=== PATIENT | male | born 1965 | race Caucasian/White ===

== ENCOUNTER 2021-02-14 08:42 | Outpatient (CLI) | payer OTHER, SELFPAY | END 2021-02-14 08:43 | disposition home or self-care (01) | LOC: ANHCOVIDVC 08:42 | PROVIDERS: PCP Family Medicine | DX: Z23 Encounter for immunization (principal) | CPT/HCPCS: 0001A; 91300 ==

== ENCOUNTER → 2021-03-06 14:28 | Outpatient (REF) | payer OTHER, SELFPAY | LOC: ANHLAB 14:28 | PROVIDERS: PCP Family Medicine; Visit Provider Nurse Practitioner | DX: C44.609 Unspecified malignant neoplasm of skin of left upper limb, including shoulder (principal) | CPT/HCPCS: 88305 ==

== ENCOUNTER 2021-03-07 08:38 | Outpatient (CLI) | payer OTHER, SELFPAY | END 2021-03-07 08:39 | LOC: ANHCOVIDVC 08:38 | PROVIDERS: PCP Family Medicine | DX: Z23 Encounter for immunization (principal) | CPT/HCPCS: 0002A; 91300 ==

== ENCOUNTER → 2021-03-14 13:00 | Outpatient (REF) | payer OTHER, SELFPAY | LOC: ANHLAB 13:00 | PROVIDERS: PCP Family Medicine; Visit Provider Nurse Practitioner | DX: C44.619 Basal cell carcinoma of skin of left upper limb, including shoulder (principal) | CPT/HCPCS: 88305 ==

== ENCOUNTER → 2021-04-24 07:48 | Outpatient (REF) | payer OTHER, SELFPAY | LOC: ANHLAB 07:48 | PROVIDERS: PCP Family Medicine; Visit Provider Nurse Practitioner | DX: C44.619 Basal cell carcinoma of skin of left upper limb, including shoulder (principal) | CPT/HCPCS: 88305; 88331 ==

== ENCOUNTER → 2022-02-13 01:38 | Outpatient (CLI) | payer OTHER, SELFPAY ==
[2022-02-13 11:24] LABS: SARS-CoV-2 RNA PCR Negative
== END ==
PROVIDERS: PCP Family Medicine; Visit Provider Nurse Practitioner Family
DX: R09.89 Other specified symptoms and signs involving the circulatory and respiratory systems (principal); Z20.822 Contact with and (suspected) exposure to COVID-19
CPT/HCPCS: C9803; U0003; U0005

== ENCOUNTER 2022-12-26 10:36 | Emergency (ER) | payer OTHER, SELFPAY ==
[2022-12-26 10:47] VITALS: BP 119/70; PULSE 104; RESP 20; TEMP 37.1; O2SAT 100
--- NOTE | 2022-12-26 10:54 | ED.BACK ---
HPI - Back Pain/Injury General Chief Complaint: Back Pain/Injury Stated Complaint: back pain Time Seen by Provider: 12/26/22 10:50 Source: patient Mode of arrival: ambulatory Limitations: no limitations History of Present Illness HPI Narrative: Gary is a 57-year-old male patient presenting to clinic today with complaints of a back injury that occurred on [facility] Saturday. He reports he was bending over to make the bed and felt a pop in his back. States he had instant pain was some muscle spasms. He contacted a tele doc through his work program and they discussed using some stretches and gave him off until Saturday to recuperate. He has been taking Aleve for the pain. He is here today because he says that he is needing a note to go back to work. Reports that he is feeling better and has slight tightness in his back but he has been completing the stretches of a morning and that has been helping. He denies any radiation of pain down his legs, saddle anesthesia, or loss of bowel or bladder. 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 He feels as though he can complete his duties at work without limitations. Reports that they do to stretch prior to their work shift Related Data Allergies Allergy/AdvReac Type Severity Reaction Status Date / Time No Known Allergies Allergy Verified 12/11/22 09:09 Review of Systems Review of Systems: Pertinent positives per HPI. Patient denies any fever, chills, rash, headache, visual changes, dizziness, cough, runny nose, sore throat, shortness of breath, chest pain, palpitations, nausea, vomiting, diarrhea, constipation, abdominal pain, or any urinary issues. [facility] Past Medical History Medical History [place] (actinic keratosis) Anxiety Anxiety and depression Basal cell carcinoma (BCC) of upper back Bipolar disorder, unspecified BMI 24.0-24.9, adult BMI 25.0-25.9,adult Skin lesion of scalp Skin neoplasm Family History Family History Father Family history of lymphoma Mother No problems noted. Sibling No problems noted. 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 There is no relevant family history pertinent to the patient complaint. Exam Narrative: General: Well-developed, well nourished, in no apparent distress Head: Normocephalic, atraumatic. Cardio: Regular rate and rhythm, s1 and s2 normal, no murmur appreciated. Resp: Clear to auscultation bilaterally, no rhonchi, rales, wheezing or rubs. Musculoskeletal: No deformity, non-tender to palpation, grossly normal range of motion, patellar reflexes 2+ bilaterally, straight leg test negative bilaterally, bilateral lower muscle strength strong and equal, peripheral pulse strong, no edema, no cyanosis, normal gait and station Course Course Emergency Course: Portions of this record may have been created with voice recognition software. Level of Care: Express Care Visit Vital Signs Vital signs: Vital Signs Temperature 37.1 C 12/26/22 10:47 Pulse Rate 1
== END 2022-12-26 11:01 | disposition home or self-care (01) ==
PROVIDERS: Emergency Provider Nurse Practitioner Family; PCP Family Medicine
DX: S39.012A Strain of muscle, fascia and tendon of lower back, initial encounter (principal); X58.XXXA Exposure to other specified factors, initial encounter; Z85.828 Personal history of other malignant neoplasm of skin; Z87.891 Personal history of nicotine dependence
CPT/HCPCS: 99212; G0463

== ENCOUNTER 2023-12-02 13:39 | Emergency (ER) | payer SELFPAY ==
--- NOTE | 2023-12-02 13:55 | ED.EAR ---
HPI - Ear Problem General Chief complaint: Ear Stated complaint: lt earache Time Seen by Provider: 12/02/23 14:43 Source: patient and RN notes reviewed Mode of arrival: ambulatory Limitations: no limitations History of Present Illness HPI Narrative: 58-year-old male presents with concern for left ear pain. Reports pain on and off for a month. Reports that got worse . Reports he has tried using ear wax removal that might use the pain temporarily. He denies fever. He denies runny nose, stuffy nose. MD Complaint: ear pain Related Data Allergies Allergy/AdvReac Type Severity Reaction Status Date / Time No Known Allergies Allergy Verified 12/02/23 14:42 Review of Systems Review of Systems: CONSTITUTIONAL: Denies malaise, chills, sweats, or fever. EYES: Denies visual changes, redness, or discharge. ENT: Denies rhinorrhea, congestion, sinus pain, and sore throat. Reports left ear pain CARDIOVASCULAR: Denies chest pain, palpitations, or edema. RESPIRATORY: Denies cough. Denies dyspnea. GASTROINTESTINAL: Denies abdominal pain, nausea, vomiting, diarrhea SKIN: Denies rash or itching. MUSCULOSKELETAL: Denies myalgia. NEUROLOGIC: Denies headache. All systems reviewed & are unremarkable except as noted in HPI and below PMFSH Past Medical History Medical History (Updated 12/02/23 @ 15:12 by Sharyn Velez NP) AK (actinic keratosis) Anxiety Anxiety and depression Arthritis Basal cell carcinoma (BCC) of upper back Bipolar disorder, unspecified BMI 24.0-24.9, adult BMI 25.0-25.9,adult BMI 26.0-26.9,adult Chronic pain Screen for colon cancer Skin lesion of scalp Skin neoplasm Family History Family History Father Family history of lymphoma Mother No problems noted. Sibling No problems noted. 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 There is no relevant family history pertinent to the presenting complaint Exam Narrative: GENERAL: Well-appearing, well-nourished, and in no acute distress. HEAD: Normocephalic EYES: PERRLA, conjunctivae clear ENT: Nares clear. Mucous membranes moist. Right TM pearly cruz with dull light reflex, left TM not visible due to excess cerumen; left tragal tenderness. Oropharynx not erythematous without lesions. Tonsils not enlarged and without exudate, no drooling, no hoarseness, no trismus, uvula midline. NECK: Supple. No lymphadenopathy CHEST: Clear to auscultation, breath sounds equal. No wheezing, rhonchi, rales, or stridor. No respiratory distress, speaks in full sentences. HEART: Regular rate and rhythm. No murmur heard. SKIN: Warm, dry, no rash. NEURO: Alert and oriented x3. PSYCH: Normal mood and affect Course Course Emergency Course: Patient is aware of diagnosis, understands and agrees to treatment plan. Anticipatory guidance given. Patient agrees to follow-up as directed and is aware of reasons to seek care at the
[2023-12-02 14:32] VITALS: BP 126/86; PULSE 92; RESP 16; TEMP 36.5; O2SAT 100
--- NOTE | 2023-12-02 14:59 | PC.NURSE ---
hot car charger at bedside.
== END 2023-12-02 15:16 | disposition home or self-care (01) ==
PROVIDERS: Emergency Provider Nurse Practitioner; PCP Family Medicine
DX: H60.92 Unspecified otitis externa, left ear (principal); H61.22 Impacted cerumen, left ear; Z87.891 Personal history of nicotine dependence; F12.90 Cannabis use, unspecified, uncomplicated; M19.90 Unspecified osteoarthritis, unspecified site; Z85.828 Personal history of other malignant neoplasm of skin
CPT/HCPCS: 69209; 99213; G0463

== ENCOUNTER 2024-07-13 06:59 | Outpatient (CLI) | payer OTHER, SELFPAY ==
[2024-07-13 07:50] LABS: Basophils Absolute Auto 0.1 K/mm3 (0.0-0.1); Basophils Percent Auto 0.9 % (0.2-1.2); Eosinophils Absolute Auto 0.1 K/mm3 (0-0.3); Eosinophils Percent Auto 2.1 % (0-4.4); Hematocrit 49.4 % (42.0-52.0); Hemoglobin 16.2 g/dL (14.0-18.0); Immature Granulocyte Absolute 0.02 K/mm3 (0.00-0.031); Immature Granulocyte Percent A 0.3 % (0-0.5); Lymphocytes Absolute Auto 1.65 K/mm3 (0.9-3.2); Lymphocytes Percent Auto 24.3 % (18.3-44.2); Mean Corpuscular HGB Conc 32.8 g/dl (32-36); Mean Corpuscular Hemoglobin 28.2 pg (26-34); Mean Corpuscular Volume 85.9 fl (80-100); Mean Platelet Volume 9.2 fl (7.4-10.4); Monocytes Absolute Auto 0.5 K/mm3 (0.1-0.6); Monocytes Percent Auto 7.1 % (2.6-8.5); Neutrophils Absolute Auto 4.4 K/mm3 (1.3-6.7); Neutrophils Percent Auto 65.3 % (45.5-73.1); Platelet Count Result 313 k/mm3 (150-375); Red Blood Count 5.75 M/mm3 (4.6-6.20); Red Cell Distribution Width 13.2 % (11.5-14.5); White Blood Count 6.8 K/mm3 (4.5-10.0)
[2024-07-13 08:07] LABS: Alanine Aminotransferase 24 U/L (6-50); Albumin Level 4.4 g/dL (3.5-5.1); Alkaline Phosphatase 88 U/L (38-126); Anion Gap 8 mmol/L (4-12); Aspartate Amino Transferase 29 U/L (17-59); Bilirubin,Total 0.8 mg/dL (0.2-1.3); Blood Urea Nitrogen 12 mg/dL (9-20); Calcium 9.1 mg/dL (8.4-10.2); Carbon Dioxide 27 mmol/L (22-30); Chloride 104 mmol/L (98-107); Cholesterol 248 mg/dL (0-200); Estimated Glomerular Filt Rate > 60; Glucose 126 mg/dL (65-110); HDL Direct 46 mg/dL; Sodium 139 mmol/L (137-145); Triglycerides 132 mg/dL (<150)
[2024-07-13 08:10] LABS: Rheumatoid Factor < 12.0 IU/ML (<12)
[2024-07-13 08:18] LABS: LDL Cholesterol Direct 164 mg/dL
[2024-07-13 09:14] LABS: Erythrocyte Sedimentation Rate 3 mm/hr (0-20)
== END 2024-07-13 07:00 | disposition home or self-care (01) ==
PROVIDERS: PCP Family Medicine; Visit Provider Family Medicine
DX: F41.9 Anxiety disorder, unspecified (principal); C44.619 Basal cell carcinoma of skin of left upper limb, including shoulder; G89.29 Other chronic pain; F32.9 Major depressive disorder, single episode, unspecified; M19.90 Unspecified osteoarthritis, unspecified site; Z12.5 Encounter for screening for malignant neoplasm of prostate; Z13.1 Encounter for screening for diabetes mellitus; Z13.220 Encounter for screening for lipoid disorders; Z13.29 Encounter for screening for other suspected endocrine disorder
CPT/HCPCS: 36415; 80048; 80061; 80076; 84153; 84443; 85025; 85652; 86038; 86039; 86430; G0103

== ENCOUNTER 2024-08-03 06:59 | Day surgery (SDC) | payer OTHER, SELFPAY ==
[2024-05-20 07:47] VITALS: BMI 26.6
[2024-07-17 12:07] VITALS: BMI 23.8
--- NOTE | 2024-08-03 07:09 | WPDANESEPPF ---
Anes - Initial Pre Proc Eval Procedure: Operation Date: 08/03/24 08:30 Proposed Procedures p Screening Colonoscopy - Azael Richmond DO Date/Time: 08/03/24 07:09 Surgeon: Azael Richmond DO Pre Op Diagnosis: Neoplasm Screening Patient Data Age: 59 Gender: M Height: 1.88 m Weight: 84 kg Allergies Allergy/AdvReac Type Severity Reaction Status Date / Time No Known Allergies Allergy Verified 08/03/24 07:22 Home Medications Medication Instructions Recorded Confirmed Type duloxetine 60 mg capsule,delayed 60 mg PO DAILY #30 caps 05/07/24 08/03/24 Rx release (Cymbalta) quetiapine 100 mg tablet (Seroquel) 200 mg PO DAILY #60 tabs 07/23/24 08/03/24 Rx Patient hx anesthesia problems: none Family hx anesthesia problems: none Results Review: All pre-operative results and documents have been reviewed as part of the pre-operative evaluation. REPLACED BY [facility] Past Medical History Medical History (Updated 12/03/23 @ 00:01 by Elvis Kelley) [place] (actinic keratosis) Anxiety Anxiety and depression Arthritis Basal cell carcinoma (BCC) of upper back Bipolar disorder, unspecified BMI 24.0-24.9, adult BMI 25.0-25.9,adult BMI 26.0-26.9,adult Chronic pain Screen for colon cancer Skin lesion of scalp Skin neoplasm Family History Family History Father Family history of lymphoma Mother No problems noted. Sibling No problems noted. Social History Social History Smoking status: Former smoker Tobacco type: cigarettes Second hand tobacco smoke exposure: No Alcohol intake: current Drinks per week: 4 Substance use: current Substance use type: marijuana Other substance usage details: daily Lack of Transportation: No Lack of Food: Never True Current Housing: I Have Housing Concerned About Future Housing: No Difficulty Paying Gas/Electric Bills: No Difficulty Paying for Meds: No Currently Unemployed: No Education: High School Diploma/GED Difficulty w/ Childcare or Family Care: No Living arrangements: with family Occupation/Education: occupation 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 Gender identity (if verbalized by the patient): Male Sexual Orientation (if Verbalized by the Patient): Straight or Heterosexual Spiritual care concerns: No Agree to blood products: Yes Anes - Eval Final PreProcedure Day of Procedure 08/03/24 07:09 Patient weight: normal Heart: regular rate and rhythm Lungs: clear to auscultation and normal air movement Airway: Mallampati scale class II Neurological: alert and oriented Last oral intake: >/= 8 hours ASA classification: III Emergent: no Anesthetic plan: proceed Anesthesia type and monitoring: general GIVS and standard monitoring Results Review: All pre-operative results and documents have been reviewed as part of the pre-operative evaluation. Informed Consent: The patient's anesthetic plan and its attendant risks and benefits were discussed with the patient/family/POA. Questions were solicited and answers provided to the satisfaction of the patient/family/POA.
[2024-08-03 07:25] VITALS: BP 121/76; PULSE 102; RESP 16; TEMP 36.9; O2SAT 99
[2024-08-03] MEDS: LACTATED RINGERS 1,000 ML 150 ML IV CONT (07:40)
--- NOTE | 2024-08-03 08:35 | PM.IMHP ---
H&P: HPI History of Present Illness Date/Time: 08/03/24 08:35 Chief Complaint: Screening for colorectal cancer Narrative: 59 yo man presents for his first colonoscopy. He denies any hematochezia or melena. No family hx of colon cancer. Review of Systems Review of Systems: All systems reviewed & are unremarkable except as noted in HPI and below Constitutional: Constitutional: Denies chills, Denies fever(s), Denies headache(s) and Denies weight loss Eyes: Eyes: Denies change in vision ENT: Denies dizziness, Denies headache(s), Denies neck mass and Denies throat swelling Cardiovascular: Cardiovascular: Denies chest pain, Denies lightheadedness and Denies dyspnea Respiratory: Respiratory: Denies cough, Denies dyspnea and Denies wheezing Gastrointestinal: Gastrointestinal: Denies abdominal pain, Denies change in bowel habits, Denies nausea and Denies vomiting Genitourinary: Genitourinary: Denies hematuria and Denies dysuria Musculoskeletal: Musculoskeletal: Reports as per HPI Integumentary/Breasts: Skin/Breast: Reports as per HPI Neurologic: Denies dizziness and Denies headache(s) Allergic/Immunologic: Allergic/Immunologic: Denies throat swelling and Denies wheezing [facility] Past Medical History Medical History (Updated 12/03/23 @ 00:01 by Elvis Kelley) [place] (actinic keratosis) Anxiety Anxiety and depression Arthritis Basal cell carcinoma (BCC) of upper back Bipolar disorder, unspecified BMI 24.0-24.9, adult BMI 25.0-25.9,adult BMI 26.0-26.9,adult Chronic pain Screen for colon cancer Skin lesion of scalp Skin neoplasm Family History Family History Father Family history of lymphoma Mother No problems noted. Sibling No problems noted. Social History Social History Smoking status: Former smoker Tobacco type: cigarettes Second hand tobacco smoke exposure: No Alcohol intake: current Drinks per week: 4 Substance use: current Substance use type: marijuana Other substance usage details: daily Lack of Transportation: No Lack of Food: Never True Current Housing: I Have Housing Concerned About Future Housing: No Difficulty Paying Gas/Electric Bills: No Difficulty Paying for Meds: No Currently Unemployed: No Education: High School Diploma/GED Difficulty w/ Childcare or Family Care: No Living arrangements: with family Occupation/Education: occupation 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 Gender identity (if verbalized by the patient): Male Sexual Orientation (if Verbalized by the Patient): Straight or Heterosexual Spiritual care concerns: No Agree to blood products: Yes Meds Home Medications and Allergies Home Medications Medication Instructions Recorded Confirmed Type duloxetine 60 mg capsule,delayed 60 mg PO DAILY #30 caps 05/07/24 08/03/24 Rx release (Cymbalta) quetiapine 100 mg tablet (Seroquel) 200 mg PO DAILY #60 tabs 07/23/24 08/03/24 Rx Allergies Allergy/AdvReac Type Severity Reaction Status Date / Time No Known Allergies Allergy Verified 08/03/24 07:22 Vital Signs Vital Signs - 24 hr 08/03/24 07:25 Temperature 98.4 F Pulse Rate 102 H Respiratory Rate 16 Blood Pressure 121/76 Pulse Oximetry 99 Oxygen Delivery Room Air Exam Const: General: no acute distress and alert Orientation/consciousness: patient oriented x3 HENMT: Head: normocephalic and atraumatic Ears: hearing grossly normal bilaterally Face/Nose/Sinus: Normal nares present Mouth: Yes Normal oral and palatal mucosa present Eyes: Periorbital: periorbital findings normal Sclera: sclerae normal EOM: EOMs intact bilaterally Neck: Neck: normal visual inspection, no lymphadenopathy and trachea midline Chest: Chest palpation & inspection: normal inspection of the chest Resp: Effort & Inspection: no
[2024-08-03 09:03] VITALS: BP 112/82; PULSE 84; RESP 16; O2SAT 97
--- NOTE | 2024-08-03 09:11 | WPDANESPN ---
Anes - Prog Note Post-Op Date/Time: 08/03/24 09:11 Cardiovascular status: normal Respiratory status: normal Airway patency: baseline Mental status: baseline Post-Op hydration status: normal Vital Signs: Last Vital Signs Temp 36.9 C 08/03/24 07:25 Pulse 84 08/03/24 09:03 Resp 16 08/03/24 09:03 BP 112/82 08/03/24 09:03 Pulse Ox 97 08/03/24 09:03 O2 Del Method Room Air 08/03/24 09:03 Pain Score (VAS): 0 I/O: Intake & Output 08/02/24 08/03/24 08/03/24 23:59 07:59 15:59 Intake Total 600 Balance 600 Post-procedural complaints: none Patient Feedback: Patient satisfied with anesthetic care. Other Findings: Patient vital signs back to baseline. Patient denies nausea and vomiting. Patient's pain under control. Patient OK for discharge.
[2024-08-03 09:13] VITALS: BP 113/90; PULSE 78; RESP 16; O2SAT 99
[2024-08-03 09:23] VITALS: BP 119/89; PULSE 74; RESP 18; O2SAT 100
== END 2024-08-03 09:34 | disposition home or self-care (01) ==
PROVIDERS: PCP Family Medicine; Visit Provider Surgery
PROC: 0DJD8ZZ Inspection of Lower Intestinal Tract, Via Natural or Artificial Opening Endoscopic (ICD-10-PCS; CPT 45378; principal; 2024-08-03 08:30)
DX: Z12.11 Encounter for screening for malignant neoplasm of colon (principal); D12.8 Benign neoplasm of rectum; K57.30 Diverticulosis of large intestine without perforation or abscess without bleeding
CPT/HCPCS: 45380

== ENCOUNTER 2024-08-03 07:00 | Outpatient (NON) | payer OTHER, SELFPAY | END 2024-08-03 07:01 | disposition home or self-care (01) | LOC: ANHLAB 08-04 08:28 | PROVIDERS: PCP Family Medicine; Visit Provider Surgery | DX: K63.5 Polyp of colon (principal); Z12.11 Encounter for screening for malignant neoplasm of colon | CPT/HCPCS: 88305 ==

== ENCOUNTER → 2025-04-16 09:17 | Outpatient (CLI) | payer OTHER, SELFPAY ==
--- NOTE | ~2025-04-16 | XR_ITS ---
XR hand BI arthritis min 3V 04/16/2025 11:47 Indication: Joint pain Procedure: 4 views each hand Comparison: No prior studies for comparison. Findings: There is a healed left fifth metacarpal neck fracture. There is a small osteochondroma orig inating from the distal aspect of the second metacarpal. No acute fracture or traumatic malalignment. There is mild-moderate degenerative change of the triscaphe and to lesser degree first carpal metaca rpal joints. No focal soft tissue abnormality. Impression: 1: No acute bone or joint abnormality. 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 Reviewed, dictated and finalized at location B. Impression: 1: No acute bone or joint abnormality. 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
== END ==
LOC: EXPTRAD 09:19
PROVIDERS: PCP Physician Assistant Medical; Visit Provider Physician Assistant Medical
DX: M79.642 Pain in left hand (principal); M79.641 Pain in right hand
CPT/HCPCS: 73130

== ENCOUNTER 2025-06-16 09:16 | Outpatient (CLI) | payer OTHER, SELFPAY ==
--- NOTE | 2025-06-16 11:15 | NEURO_ITS ---
Impression: # Complains of numbness of hands. ? # Bilateral Carpal Tunnel Syndrome. ? # No ulnar neuropathy. ? # Normal needle/EMG exam. ? # Clinical correlation recommended. Nerve Conduction Studies ?Stim Site NR Peak (ms) P-T Amp (?V) Site1 Site2 Delta-P (ms) Dist (cm) Fady (m/s) Left Median Anti Sensory (2-3nd Digit) Wrist ? 4.2 25.3 Wrist 2-3nd Digit 4.2 14.0 33 Wrist ? 4.3 20.1 Wrist 2-3nd Digit 4.2 14.0 33 Right Median Anti Sensory (2-3nd Digit) Wrist ? 5.3 4.9 Wrist 2-3nd Digit 5.3 14.0 26 Wrist ? 5.6 3.6 Wrist 2-3nd Digit 5.3 14.0 26 Left Radial Anti Sensory (Base 1st Digit) Wrist ? 2.3 8.3 Wrist Base 1st Digit 2.3 0.0 Right Radial Anti Sensory (Base 1st Digit) Wrist ? 2.8 9.8 Wrist Base 1st Digit 2.8 0.0 Left Ulnar Anti Sensory (5th Digit) Wrist ? 3.0 11.6 Wrist 5th Digit 3.0 14.0 47 Right Ulnar Anti Sensory (5th Digit) Wrist ? 3.0 28.5 Wrist 5th Digit 3.0 14.0 47 ?Stim Site NR Onset (ms) O-P Amp (mV) Site1 Site2 Delta-0 (ms) Dist (cm) Fady (m/s) Left Median Motor (Abd Poll Brev) Wrist ? 4.7 2.1 Elbow Wrist 5.8 33.0 57 Elbow ? 10.5 3.3 Right Median Motor (Abd Poll Brev) Wrist ? 5.2 0.5 Elbow Wrist 5.7 34.0 60 Elbow ? 10.9 0.5 Left Ulnar Motor (Abd Dig Minimi) Wrist ? 2.8 6.5 A Elbow Wrist 5.8 33.0 57 A Elbow ? 8.6 6.2 B Elbow Wrist 4.2 24.0 57 B Elbow ? 7.0 2.8 Right Ulnar Motor (Abd Dig Minimi) Wrist ? 2.8 6.4 A Elbow Wrist 5.8 33.0 57 A Elbow ? 8.6 4.5 B Elbow Wrist 4.2 24.0 57 B Elbow ? 7.0 2.3 F Wave Studies ?NR F-Lat (ms) L-R F-Lat (ms) Left Median (Mrkrs) (Abd Poll Brev) ? 27.30 2.08 Right Median (Mrkrs) (Abd Poll Brev) ? 29.38 2.08 Left Ulnar (Mrkrs) (Abd Dig Min) ? 30.50 0.05 Right Ulnar (Mrkrs) (Abd Dig Min) ? 30.54 0.05 Electromyography ?Side Muscle Nerve Root Ins Act Fibs Amp Dur Recrt Comment Right 1stDorInt Ulnar C8-T1 Nml Nml Nml Nml Nml Right Ext Indicis Radial (Post Int) C7-8 Nml Nml Nml Nml Nml Right Ext Digitorum Radial (Post Int) C7-8 Nml Nml Nml Nml Nml Right BrachioRad Radial C5-6 Nml Nml Nml Nml Nml Right PronatorTeres Median C6-7 Nml Nml Nml Nml Nml Right Abd Poll Brev Median C8-T1 Nml Nml Nml Nml Nml Right ABD Dig Min Ulnar C8-T1 Nml Nml Nml Nml Nml Right FlexPolLong Median (Ant Int) C7-8 Nml Nml Nml Nml Nml Right Abd Poll Long Radial (Post Int) C7-8 Nml Nml Nml Nml Nml Left 1stDorInt Ulnar C8-T1 Nml Nml Nml Nml Nml Left Ext Indicis Radial (Post Int) C7-8 Nml Nml Nml Nml Nml Left Ext Digitorum Radial (Post Int) C7-8 Nml Nml Nml Nml Nml Left BrachioRad Radial C5-6 Nml Nml Nml Nml Nml Left PronatorTeres Median C6-7 Nml Nml Nml Nml Nml Left Abd Poll Brev Median C8-T1 Nml Nml Nml Nml Nml Left ABD Dig Min Ulnar C8-T1 Nml Nml Nml Nml Nml Left FlexPolLong Median (Ant Int) C7-8 Nml Nml Nml Nml Nml Left Abd Poll Long Radial (Post Int) C7-8 Nml Nml Nml Nml Nml
== END 2025-06-16 09:17 | disposition home or self-care (01) ==
LOC: ANHNEURO 09:23
PROVIDERS: PCP Physician Assistant Medical; Visit Provider Physician Assistant Medical
DX: G56.03 Carpal tunnel syndrome, bilateral upper limbs (principal)
CPT/HCPCS: 95886; 95911

== ENCOUNTER 2025-07-29 06:31 | Day surgery (SDC) | payer OTHER, SELFPAY ==
[2025-07-20 11:44] VITALS: BMI 23.6
--- NOTE | 2025-07-29 06:57 | WPDHPUPDATE1 ---
History and Physical Update Update Date/Time: 07/29/25 06:57 Patient seen and examined in pre-operative holding area. No interval change in medical history or symptoms. Patient recalls previous discussion of benefits and alternatives to procedure. Continues to desire to proceed with right endoscopic possible open carpal tunnel release and right cubital tunnel release. Reviewed procedure, post-op expectations and risks including but not limited to bleeding, infection, injury to tendon/nerve/vessel, decreased hand function, stiffness, RSD, no change or worsening of symptoms. I discussed the possible use of assistants and their participation in the case. Patient stated understanding and signed the consent form wishing to proceed.
--- NOTE | 2025-07-29 06:58 | W.PM.PROC2 ---
Procedure Note - Detailed Date of Procedure 07/29/25 Pre-op Diagnosis Right Carpal and Cubital Tunnel Syndrome Post-op Diagnosis Same Procedure Performed right ectr and CuTR Surgeon Bud Lynch MD Wind Energy Engineer Lisa Salcedo PA-C Anesthesia MAC Description of Procedure INFORMED CONSENT: The patient was seen and examined and marked in the pre-op area.? The patient signed the consent form. PROCEDURE IN DETAIL:The patient taken back to OR on the stretcher in supine position. Time out performed with anesthesia, surgeon and staff agreeing on patient's name site and surgery to be performed SCDs were placed on the lower extremities and inflated. A tourniquet was placed on {right} upper extremity and antibiotics given IV After anesthesia administered sedation I injected {10}cc 1%lido with epi and 0.5% marcaine plain at the operative sites The?{right upper extremity}?was prepped and draped in sterile fashion the??{right upper extremity} was? exsanguinated with Esmarch bandage and tourniquet inflated to 250mmHg I made a transverse incision in the {right} volar distal wrist crease through skin and dermis with 15 blade scalpel.? Littler scissors spread down to antebrachial fascia. A small incision was made in antebrachial fascia allowing access to Carpal tunnel. I proceeded with sequential dilation staying in line with the ring finger and hugging the hook of the hamate.? I then used the synovial elevator to free any adhesions from the underside of the transverse carpal ligament. Next I was able to insert the Microaire endoscopic carpal tunnel device with direct visualization of the transverse fibers on the monitor and proceeded with complete segmental retrograde release of the ligament in its entirety.? I irrigated with normal saline and closed with 4-0 monocryl for dermis and subcuticular closure. I next proceeded with making a longitudinal incision between two heads for flexor carpi ulnaris at end of {right} cubital tunnel with 15 blade scalpel.? Littler scissors were used to spread down to FCU fascia.? An incision was made in FCU fascia and ulnar nerve identified exiting cubital tunnel.? I proceeded with complete retrograde release of the cubital tunnel including 7cm proximal for the intermuscular septum.? The nerve appeared healthy with visible vaso nervorum.? There was no subluxation on full elbow range of motion. ? I irrigated with normal saline and closure with 3-0 vicryl and 4-0 monocryl. The incisions were covered with Dermabond then 4x4s, preeti, and a posterior elbow and volar wrist splint for patient safety, security and comfort and secured with earnest bandages after the tourniquet was let down noting the hand was warm and well perfused.? Patient awaken from anesthesia and transferred to recovery in stable condition Complications - none EBL- 1cc Disposition - home in stable condition Lisa Salcedo PA-C was essential for positioning, retraction, closure and dressing placement [facility] Billing Surgery - Charge Forward: Surgery Billing ([id number] same for lisa)
[2025-07-29] MEDS: ACETAMINOPHEN 500 MG TABLET 1000 MG PO (07:15)
[2025-07-29 07:18] VITALS: BP 143/99; PULSE 92; RESP 16; TEMP 37.3; O2SAT 100
--- NOTE | 2025-07-29 07:41 | WPDANESEPPF ---
Anes - Initial Pre Proc Eval Procedure: Operation Date: 07/29/25 08:30 Proposed Procedures p Right Endoscopic Carpal Tunnel Release, Possible Open Carpal Tunnel Release - Bud Lynch MD s Right Cubital Tunnel Release - Bud Lynch MD Date/Time: 07/29/25 07:41 Surgeon: Bud Lynch MD Pre Op Diagnosis: Right Carpal and Cubital Tunnel Syndrome Patient Data Age: 60 Gender: M Height: 1.88 m Weight: 82.2 kg Last Vital Signs Temp 99.1 F 07/29/25 07:18 Pulse 92 07/29/25 07:18 Resp 16 07/29/25 07:18 BP 143/99 H 07/29/25 07:18 Pulse Ox 100 07/29/25 07:18 O2 Del Method Room Air 07/29/25 07:18 Allergies Allergy/AdvReac Type Severity Reaction Status Date / Time meloxicam AdvReac Intermediate jittery Verified 07/29/25 07:11 prednisone AdvReac Mild Jittery Verified 07/29/25 07:11 Home Medications ?Medication ?Instructions ?Recorded ?Confirmed ?Type duloxetine 60 mg capsule,delayed 60 mg PO DAILY #30 caps 05/20/25 07/29/25 Rx release buspirone 10 mg tablet 10 mg PO BID #30 tabs 07/20/25 07/29/25 Rx naproxen sodium 220 mg capsule 220 mg PO BID PRN pain 07/20/25 07/29/25 History (Aleve) quetiapine 200 mg tablet 200 mg PO DAILY #30 tabs 07/20/25 07/29/25 Rx hydrocodone 5 mg-acetaminophen 325 1 tablet PO Q6H PRN pain #8 tabs 07/29/25 Rx mg tablet Patient hx anesthesia problems: none Family hx anesthesia problems: none Results Review: All pre-operative results and documents have been reviewed as part of the pre-operative evaluation. [facility] Past Medical History Medical History (Updated 07/20/25 @ 17:01 by Odalis Keith, SOFTWARE DEVELOPER [employer]) Addiction, marijuana Arthritis Screen for colon cancer Chronic pain BMI 26.0-26.9,adult BMI 24.0-24.9, adult BMI 25.0-25.9,adult Anxiety and depression [place] (actinic keratosis) Anxiety Basal cell carcinoma (BCC) of upper back Bipolar disorder, unspecified Skin lesion of scalp Skin neoplasm Family History Family History Father Family history of lymphoma Mother No problems noted. Sibling No problems noted. Social History Social History Smoking status: Former smoker Tobacco type: cigarettes Second hand tobacco smoke exposure: No Alcohol intake: current Drinks per week: 4 Substance use: current Substance use type: marijuana Other substance usage details: daily Do You Feel Safe in your Home?: Yes Lack of Transportation: No Lack of Food: Never True Current Housing: I Have Housing Concerned About Future Housing: No Difficulty Paying Gas/Electric Bills: No Difficulty Paying for Meds: No Currently Unemployed: No Education: High School Diploma/GED Difficulty w/ Childcare or Family Care: No Living arrangements: with family Occupation/Education: occupation 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 Gender identity (if verbalized by the patient): Male Sexual Orientation (if Verbalized by the Patient): Straight or Heterosexual Spiritual care concerns: No Agree to blood products: Yes Anes - Eval Final PreProcedure Day of Procedure 07/29/25 07:41 Heart: regular rate and rhythm Lungs: clear to auscultation Airway: Mallampati scale class II Neurological: alert and oriented Last oral intake: >/= 8 hours ASA classification: II Anesthetic plan: proceed Anesthesia type and monitoring: monitored anesthesia care Results Review: All pre-operative results and documents have been reviewed as part of the pre-operative evaluation. Informed Consent: The patient's anesthetic plan and its attendant risks and benefits were discussed with the patient/family/POA. Questions were solicited and answers provided to the satisfaction of the patient/family/POA.
[2025-07-29] MEDS: LACTATED RINGERS 1,000 ML 30 ML IV CONT (08:19)
[2025-07-29] MEDS: ceFAZolin SODIUM 2 GM/20 ML SW SYRINGE IV PUSH (08:38)
[2025-07-29] MEDS: LIDO 1%/EPINEPHRINE 1:100,000 20 ML VIAL 10 ML INFILTRATE (08:48)
[2025-07-29] MEDS: BUPivacaine HCL 0.5% 10 ML AMP INFILTRATE (08:49)
[2025-07-29 09:08] VITALS: BP 107/81; PULSE 75; RESP 12; O2SAT 96
[2025-07-29 09:23] VITALS: BP 125/75; PULSE 75; RESP 16; O2SAT 97
[2025-07-29 09:37] VITALS: BP 121/77; PULSE 66; RESP 16; O2SAT 97
== END 2025-07-29 09:51 | disposition home or self-care (01) ==
LOC: ASC 06:50
PROVIDERS: PCP Family Medicine; Visit Provider Plastic Surgery
PROC: 01N54ZZ Release Median Nerve, Percutaneous Endoscopic Approach (ICD-10-PCS; CPT 29848; principal; 2025-07-29 08:30)
PROC: (CPT 64718; 2025-07-29 08:30)
DX: G56.01 Carpal tunnel syndrome, right upper limb (principal); G56.21 Lesion of ulnar nerve, right upper limb
CPT/HCPCS: 29848; 64718